=== PATIENT | female | born 2000 | race Two or more races ===

== ENCOUNTER 2022-02-25 13:48 | Emergency (ER) | payer OTHER ==
[~2022-02-25] VITALS: Ht 160 cm; Wt 79.7 kg
[2022-02-25] MEDS ORDERED: IBUP600T27 PO (16:38)
[2022-02-25] MEDS ORDERED: CEPH-510 PO (16:38)
[2022-02-25 16:50] VITALS: BP 136/42
== END 2022-02-25 17:03 | disposition home or self-care (01) ==
LOC: ER 13:48
DX: N90.89 Other specified noninflammatory disorders of vulva and perineum (principal)

== ENCOUNTER 2022-06-18 08:33 | Emergency (ER) | payer OTHER ==
[~2022-06-18] VITALS: Ht 160 cm; Wt 81.1 kg
[~2022-06-18 08:33] MED LIST: CEPH-510 PO; IBUP600T27 PO
[2022-06-18 10:54] LABS: Albumin 4.2 g/dL (3.4-5.0); Basophils # (auto) 0 10 ^3/uL (0-0.2); Basophils % (auto) 0.3 % (0.0-2.0); Calcium 9.1 mg/dL (8.5-10.1); Eosinophils # (auto) 0 10 ^3/uL (0-0.8); Eosinophils % (auto) 0.4 % (0.0-7.0); Hematocrit 41.4 % (36.0-46.0); Hemoglobin 14.2 g/dL (12.2-16.2); Lymphocytes # (auto) 1.9 10 ^3/uL (0.4-5.4); Lymphocytes % (auto) 24.4 % (10.0-50.0); Mean Corpuscular Hemoglobin 30.8 pg (28.0-32.0); Mean Corpuscular Hgb Conc. 34.3 g/dL (32.0-36.0); Monocytes # (auto) 0.5 10 ^3/uL (0-1.3); Monocytes % (auto) 5.7 % (0.0-12.0); Neutrophils # (auto) 5.5 10 ^3/uL (1.6-8.6); Neutrophils % (auto) 69.2 % (37.0-80.0); Potassium 4.2 mmol/L (3.5-5.1); Red Cell Distribution Width 12.2 % (11.8-14.3)
[2022-06-18 10:58] LABS: BUN/Creatinine Ratio 15.5; Bilirubin, Total 0.8 mg/dL (0.2-1.0); Total Protein 7.3 g/dL (6.4-8.2)
[2022-06-18 11:42] LABS: Urine Bacteria MOD /hpf (None Seen); Urine Blood 1+ /uL (Negative); Urine Hyaline Cast FEW /lpf (0 - 2); Urine Mucus FEW (None Seen); Urine Specific Gravity 1.023 (1.001-1.035); Urine WBC 22 /hpf (0 - 5)
[2022-06-18] MEDS ORDERED: NITR-87 PO (12:33)
[2022-06-18 15:18] VITALS: BP 108/59
== END 2022-06-18 15:18 | disposition home or self-care (01) ==
LOC: ER 08:33
DX: O46.8X1 Other antepartum hemorrhage, first trimester (principal); O23.41 Unspecified infection of urinary tract in pregnancy, first trimester; N39.0 Urinary tract infection, site not specified; Z3A.08 8 weeks gestation of pregnancy
CPT/HCPCS: 36415; 76801; 80053; 81001; 84702; 85025

== ENCOUNTER 2022-11-03 00:27 | Observation (INO) | payer OTHER ==
[~2022-11-03] VITALS: Ht 162.6 cm; Wt 86.2 kg
[~2022-11-03 00:27] MED LIST changes: +NITR-87 PO
[2022-11-03] MEDS ORDERED: PREN-96 PO (01:03)
[2022-11-03] MEDS ORDERED: CLIN300C8 PO (01:24)
[2022-11-03] MEDS ORDERED: IBUPROFEN 600 MG TAB PO ONE (01:30)
[2022-11-03 03:05] LABS: Alcohol, Urine < 3.0 mg/dL (0-10); Amphetamine Screen, Urine NEGATIVE (NEGATIVE); Barbiturate Scree,Urine NEGATIVE (NEGATIVE); Benzodiazephine Screen, Urine NEGATIVE (NEGATIVE); Cannabinoid Screen, Urine NEGATIVE (NEGATIVE); Cocaine Screen, Urine NEGATIVE (NEGATIVE); Opiate Scree,Urine NEGATIVE (NEGATIVE); Phencyclidine Screen, Urine NEGATIVE (NEGATIVE)
[2022-11-03 03:09] LABS: Urine Amorphous Crystal FEW /hpf (None Seen); Urine Bacteria NONE SEEN /hpf (None Seen); Urine Blood Negative /uL (Negative); Urine Specific Gravity 1.019 (1.001-1.035); Urine Sperm PRESENT /hpf (None Seen); Urine WBC 5 /hpf (0 - 5)
== END 2022-11-03 02:15 | disposition home or self-care (01) ==
LOC: LDRP 00:27
PROVIDERS: ADMIT Obstetrics & Gynecology; ATTEND Obstetrics & Gynecology
DX: O99.891 Other specified diseases and conditions complicating pregnancy (principal); M54.9 Dorsalgia, unspecified; O62.9 Abnormality of forces of labor, unspecified; O26.892 Other specified pregnancy related conditions, second trimester; R10.9 Unspecified abdominal pain; Z3A.27 27 weeks gestation of pregnancy; Z79.899 Other long term (current) drug therapy
CPT/HCPCS: 59025; 80307; 81001; 81002; 87086; 94760; G0378